=== PATIENT | male | born 1960 | race Caucasian/White ===

== ENCOUNTER 2021-11-15 14:19 | Emergency (ER) | payer BC ==
[~2021-11-15] VITALS: Ht 177.8 cm; Wt 113.4 kg
[2021-11-15 14:26] VITALS: BP 157/82
--- NOTE | 2021-11-15 14:30 | NUR ---
The patient bibs for L thumb laceration w/ knife slicing bagel 2 hours ago. UTD w tdap. rates left thumb pain. Will continue to monitor the patient
[2021-11-15] MEDS ORDERED: GELATIN SPONGE,ABSORBABLE 1 SPONGE SPONGE TP ONE (14:32)
[2021-11-15] MEDS: TDAP [DIPH/PERTUSSIS/TET] 0.5 ML VIAL IM ONE (14:49)
--- NOTE | 2021-11-15 14:51 | NUR ---
Patient discharged to home in stable condition. Written and verbal after care instructions given. Patient verbalizes understanding of instruction.
== END 2021-11-15 14:52 | disposition home or self-care (01) ==
LOC: ER 14:28
DX: S61.012A Laceration without foreign body of left thumb without damage to nail, initial encounter (principal); W26.0XXA Contact with knife, initial encounter; Y93.89 Activity, other specified; Y92.89 Other specified places as the place of occurrence of the external cause; Y99.8 Other external cause status
CPT/HCPCS: 99282; A6403